=== PATIENT | female | born 1980 | race Caucasian/White ===

== ENCOUNTER 2024-11-14 23:42 | Emergency (ER) | payer OTHER, SELFPAY ==
[2024-11-14 23:54] VITALS: BP 119/83
--- NOTE | 2024-11-15 01:01 | ED.GENMED ---
History of Present Illness
General
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
Time Seen by Provider: 11/15/24 00:18
History of Present Illness
History of Present Illness:
24-year-old female without significant past medical history presenting to the emergency department for concern of Bartholin cyst. Patient reports that she noticed it several days ago when she was in [place]. Has since had increased pain. She
looked up her symptoms online, consistent with a Bartholin cyst. She has never had this in the past. She has been doing sitz bath's, Epsom salt soaks, warm compresses. Prior to arrival she felt a gush of fluid from the area which prompted her to
come to the hospital. She had leftover doxycycline from an eye infection, so was on day 5 of doxycycline. Denies fever or systemic symptoms. Does note new sexual partner, however denies discharge from the vagina. Denies additional acute medical
complaints
Phy Exam
Physical Exam
Physical Exam:
General: Well-appearing, no clinical signs of dehydration, nontoxic and in no acute distress
HEENT: protecting airway
Neck: appears supple
CV: Normal heart rate
Resp: No accessory muscle use, no increased work of breathing
Abd: No distention
Extremities: No deformities, no swelling
Neuro: alert, no focal neurologic deficit
: Mild swelling to the left labia majora with active drainage. No significant erythema or warmth
Rectal: deferred
Psych: Normal affect
Skin: Intact
Course
Vital Signs
Initial and Last Documented VS:
Initial Vital Signs
Temp Pulse Resp BP Pulse Ox
99.3 F 82 20 119/83 98
11/14/24 23:54 11/14/24 23:54 11/14/24 23:54 11/14/24 23:54 11/14/24 23:54
Last Documented Vital Signs
Temp Pulse Resp BP Pulse Ox
99.3 F 82 20 119/83 98
11/14/24 23:54 11/14/24 23:54 11/14/24 23:54 11/14/24 23:54 11/14/24 23:54
MDM/Problems Addressed
MDM/Problems Addressed:
44-year-old female with no reported past medical history presenting to the emergency department for concern of Bartholin cyst rupture. Vital signs are normal.
On exam patient is resting comfortably, no acute distress or discomfort. On exam, mild swelling to the left labia majora with active drainage. No significant erythema or warmth. No cellulitic findings. No indication for incision and drainage
given that area is already draining. Did express some additional fluid on examination. Feel stable for discharge with continued outpatient supportive therapy. Advised keeping the area clean and following up with her doctor. Return precautions
discussed and patient verbalized understanding
*Pulse Oximetry
SaO2: 98
Oxygen Mode of Delivery: Room air
Patient hypoxic: no
*Critical Care Note
Total Time (30-74mins, 75-104mins- exclusive of procedures): Not Applicable
ED Attending Note
-
Portions of this chart may have been created with voice recognition software.� Occasional wrong word or��sound alike� substitutions may have occurred due to the inherent limitations of voice recognition software.
Discharge Plan
Departure
Patient Disposition: Home (Routine Discharge)
Date of Disposition: 11/15/24
Time of Disposition: 01:06
Patient with high blood pressure during this ER visit?: No
Condition: Good
Discharge Problem:
Bartholin cyst
Instructions: Bartholin gland cyst
Referrals:
Alexandra Wiggins CRNP [Family Provider, Family Practice]
Activity Restrictions/Additional Instructions:
You were seen in the emergency department for a Bartholin cyst
Your exam is consistent with a Bartholin cyst which has spontaneously open. Please continue to let the fluid drain and keep the area clean with soap and water.
Please follow-up closely with your primary care physician.
Return to the emergency department for any worsening of your symptoms, or any development of chest pain, difficulty breathing, abdominal pain with persistent vomiting and inability to tolerate food or liquid by mouth (concern for dehydration),
weakness, headache or confusion, fever greater than 100.4, or any additional symptoms that are concerning to you.
Thank you for choosing [facility].
Interventions
Interventions:
*Risk Screen - Suicide Last Done: 11/14/24 23:54
*General Assessment Last Done: 11/15/24 01:02
*Neglect/Abuse Screening Last Done: 11/15/24 01:02
*ED- Fall Risk Assessment Last Done: 11/15/24 01:02
*ED COVID-19 Vaccine History Last Done: 11/15/24 01:02
ED-Female Genitourinary Assessment Last Done: 11/15/24 01:02
Discharge Date and Time
Print Language: KOSOVAN
== END 2024-11-15 01:14 | disposition home or self-care (01) ==
LOC: EMR 23:42
PROVIDERS: EMERGENCY PHYSICIAN Student in an Organized Health Care Education/Training Program; FAMILY PHYSICIAN Nurse Practitioner Family
DX: N75.0 Cyst of Bartholin's gland (principal)
CPT/HCPCS: 99282